=== PATIENT | female | born 1935 | race Caucasian/White ===

== ENCOUNTER 2022-01-11 07:35 | Emergency (ER) | payer MEDICARE, OTHER ==
[2022-01-11 07:54] VITALS: BP 118/43; PULSE 67
[2022-01-11] MEDS ORDERED: methylPREDNISolone Sodium Succinate 125 MG/2 ML SDV IM ONE (08:48)
[2022-01-11] MEDS ORDERED: Morphine 2 MG/ML SYRINGE IM ONE (08:49)
[2022-01-11] MEDS ORDERED: Sodium Chloride 0.9% 500 ML IV ONE (10:08)
== END 2022-01-11 11:35 | disposition home or self-care (01) ==
LOC: VM.ED 07:35
DX: M54.41 Lumbago with sciatica, right side (principal); I25.10 Atherosclerotic heart disease of native coronary artery without angina pectoris; E78.00 Pure hypercholesterolemia, unspecified; I10 Essential (primary) hypertension; M19.90 Unspecified osteoarthritis, unspecified site; Z79.899 Other long term (current) drug therapy
CPT/HCPCS: 96372; 99284; J2270; J2930; J7030